=== PATIENT | female | born 1990 | race Caucasian/White ===

== ENCOUNTER 2024-06-05 18:45 | Inpatient (IN) | payer OTHER ==
[2024-06-05] MEDS: ELECTROLYTE-148 SOLN 1,000 ML IV SCH (19:20)
[2024-06-05 19:43] VITALS: BMI 31.2
[2024-06-05 19:47] LABS: INR 0.87 (0.83-1.09)
[2024-06-05 19:49] LABS: ACTIVATED PTT 25.2 SECONDS (25.2-36.5); BASO % 0.2 % (0-2.0); EOS % 0.8 % (0-4.5); HEMATOCRIT 36.8 % (32.4-45.2); HEMOGLOBIN 12.7 GM/dL (10.7-15.3); LYMPH % 16.4 % (8-40); MCH 34.1 pg (25.7-33.7); MCHC 34.5 g/dl (32.0-36.0); MEAN CELL VOLUME 98.8 fl (80-96); MEAN PLT VOLUME 9.5 fl (7.5-11.1); MONO % 6.2 % (3.8-10.2); NEUT % 76.4 % (42.8-82.8); PLATELET COUNT 175 10^3/uL (134-434); RBC 3.72 M/mm3 (3.60-5.2); RDW 12.9 % (11.6-15.6); WHITE BLOOD COUNT 11.6 K/mm3 (4.0-10.0)
[2024-06-05 19:59] LABS: POTASSIUM 3.8 mmol/L (3.5-5.1)
[2024-06-05 20:02] LABS: CALCIUM 8.7 mg/dL (8.5-10.1)
[2024-06-05 20:03] LABS: BLOOD UREA NITROGEN 17.3 mg/dL (7-18)
[2024-06-05 20:07] LABS: CREATININE 0.8 mg/dL (0.55-1.3)
[2024-06-05] MEDS ORDERED: OXYTOCIN 30 UNITS in 0.9% NS 30 UNIT/500 ML INFUS.BAG IVPB ONE (21:38)
[2024-06-05] MEDS ORDERED: PROMETHAZINE HCL 25 MG/1 ML VIAL ONE (21:38)
[2024-06-05] MEDS ORDERED: BUTORPHANOL TARTRATE 2 MG/ML VIAL ONE (21:38)
[2024-06-05] MEDS: OXYTOCIN 30 UNITS in 0.9% NS 30 UNIT/500 ML INFUS.BAG IVPB SCH (21:56)
[2024-06-05] MEDS: BUTORPHANOL TARTRATE 1 MG/ML VIAL IVPB ONE (22:21)
[2024-06-05] MEDS: PROMETHAZINE HCL 25 MG/1 ML VIAL IVPB ONE (22:21)
[2024-06-06] MEDS ORDERED: OXYTOCIN 20 UNITS in 0.9% NS 20 UNIT/1,000 ML INFUS.BAG IV ONE (04:22)
[2024-06-06] MEDS: OXYTOCIN 20 UNITS in 0.9% NS 20 UNIT/1,000 ML INFUS.BAG IV SCH (06:10)
[2024-06-06] MEDS ORDERED: ACETAMINOPHEN 325 MG TABLET (FP) PO PRN (06:24)
[2024-06-06] MEDS ORDERED: BISACODYL 10 MG SUPP.RECT RC PRN (06:24)
[2024-06-06] MEDS ORDERED: METHYLERGONOVINE MALEATE 0.2 MG/1 ML AMP IM PRN (06:24)
[2024-06-06] MEDS ORDERED: IBUPROFEN 600 MG TABLET (FP) PO PRN (06:24)
[2024-06-06 06:57] LABS: CORD BASE EXCESS -6.4 mmol/L (0-2); CORD HCO3 19.8 mmHg (20-29); CORD pH 7.292 (7.14-7.44)
[2024-06-06 07:00] LABS: CORD BASE EXCESS -7.5 mmol/L (0-2); CORD HCO3 18.3 mmHg (20-29); CORD PCO2 38.8 mmHg (30-78); CORD pH 7.292 (7.14-7.44)
[2024-06-06] MEDS: BENZOCAINE 28 GM HEMORRHOIDAL OINTMENT TP PRN (09:29)
[2024-06-06] MEDS: BENZOCAINE 20% 57 GM BOTTLE TP PRN (09:29)
[2024-06-06] MEDS: WITCH HAZEL 50% (TUCKS) 40 PAD/JAR PAD TP PRN (09:29)
[2024-06-07 08:34] LABS: BASO % 0.3 % (0-2.0); EOS % 0.7 % (0-4.5); HEMATOCRIT 36.3 % (32.4-45.2); LYMPH % 15.3 % (8-40); MCH 33.2 pg (25.7-33.7); MEAN CELL VOLUME 100.7 fl (80-96); MEAN PLT VOLUME 9.1 fl (7.5-11.1); MONO % 5.5 % (3.8-10.2); NEUT % 78.2 % (42.8-82.8); PLATELET COUNT 155 10^3/uL (134-434); RBC 3.61 M/mm3 (3.60-5.2); RDW 12.6 % (11.6-15.6); WHITE BLOOD COUNT 12.8 K/mm3 (4.0-10.0)
[2024-06-07] MEDS ORDERED: SENNOSIDES/DOCUSATE COMBO (SENNA PLUS) TABLET (UD) PO PRN (22:00)
[2024-06-08 10:34] VITALS: BP 111/69; PULSE 60; RESP 16; TEMP 98.4
[2024-06-08 10:43] LABS: POC NITRAZINE POS
== END 2024-06-08 13:30 | disposition home or self-care (01) | DRG 807 ==
LOC: JERBED 18:45 → JLDR 19:21 → J3W 06-06 08:00
PROVIDERS: ADMIT Obstetrics & Gynecology; ATTEND Obstetrics & Gynecology
PROC: 10E0XZZ Delivery of Products of Conception, External Approach (ICD-10-PCS; principal; 2024-06-06)
PROC: 0W8NXZZ Division of Female Perineum, External Approach (ICD-10-PCS; 2024-06-06)
DX: O36.5930 Maternal care for other known or suspected poor fetal growth, third trimester, not applicable or unspecified (principal); Z37.0 Single live birth; O69.81X0 Labor and delivery complicated by cord around neck, without compression, not applicable or unspecified; Z3A.38 38 weeks gestation of pregnancy
CPT/HCPCS: 36415; 36600; 59409; 80048; 82803; 83986-QW; 85025; 85610; 85730; 86780; 86850; 86900; 86901; 88307-TC